=== PATIENT | female | born 1930 | race Caucasian/White ===

== ENCOUNTER 2016-09-05 10:46 | Observation (INO) | payer MEDICARE, BC ==
[~2016-09-05] VITALS: Ht 157.5 cm; Wt 55.4 kg
[~2016-09-05 10:46] MED LIST: AMOXICILLIN 50500 MG PO; AVAPRO TAB150 MG/TAB PO; B-121000 MCG PO; CALCIUM 600MG+D1 TAB PO; COMPAZINE 110 MG/TAB PO; CORDARONE200 MG/TAB PO; DIGOXIN PO; DIOVAN160 MG PO; FISH OIL500 MG PO; KLOR-CON M2020 MEQ PO; LIPITOR 80MG80 MG PO; LORTAB 5/500 501 TAB PO; METAMUCIL3.4 GM/DOS PO; NORCO 325 MG-51 TAB PO; OMNICEF 300MG300 MG PO; OSCAL 500 TAB500 MG PO; PRILOSEC 20MG20 MG PO; PROLIA60 MG/ML SC; SYNTHROID0.075 MG/T PO; ULTRAM 50MG TAB50 MG PO; VITAMIN D1000 IU PO; ZANTAC 150150 MG; ZEBETA 5MG5 MG PO; ZOFRAN 4MG T4 MG/TAB PO
[2016-09-05] MEDS ORDERED: TYLENOL W/COD1 UDTAB PO (14:08)
[2016-09-05 16:07] LABS: BASO # 0.1 (0.0-0.2); BASO % 0.5 % (0.0-2.0); EOS # 0.1 (0.0-0.7); EOS % 0.6 % (0-4.0); GRAN # 7.5 (1.4-6.5); GRAN % 76.9 % (42.2-75.2); HEMATOCRIT 37.1 % (37.0-47.0); HEMOGLOBIN 12.1 g/dl (12.5-16.0); LYMPH # 1.3 (1.2-3.4); LYMPH % 13.3 % (20.0-51.0); MEAN CELL VOLUME 95 fl (80.0-100.0); MEAN CORPUSCULAR HEMOGLOBIN 31 pg (27.0-31.0); MEAN CORPUSCULAR HGB CONC 33 g/dl (33.0-37.0); MEAN PLATELET VOLUME 12.2 fl (7.4-10.4); MONO # 0.8 (0.1-0.6); PLATELET COUNT 166 K/mm3 (130-400); RED BLOOD COUNT 3.91 M/mm3 (4.10-5.30); REDCELL DISTRIBUTION WIDTH-CV 15.5 % (11.5-14.5); WHITE BLOOD COUNT 9.8 K/mm3 (4.8-10.8)
[2016-09-05 16:16] LABS: ADJUSTED CALCIUM 9.5 mg/dL (8.4-10.2); ALBUMIN 4.5 gm/dL (3.5-5.0); BILIRUBIN,TOTAL 0.5 mg/dL (0.0-1.0); CALCIUM 9.9 mg/dL (8.4-10.2); CREATININE, serum 1.19 mg/dL (0.52-1.25); TOTAL PROTEIN 7.3 gm/dL (6.4-8.2)
[2016-09-05 16:58] VITALS: BP 195/79; PULSE 67; TEMP 98
[2016-09-05 17:03] VITALS: BP 195/79; PULSE 68; TEMP 98
[2016-09-05] MEDS ORDERED: REQUIP0.25 MG PO (17:55)
[2016-09-05] MEDS ORDERED: PACERONE100 MG PO (17:56)
[2016-09-05 19:10] VITALS: BP 205/86; PULSE 77; TEMP 98.3
[2016-09-05 22:49] VITALS: BP 167/63
[2016-09-05 23:29] VITALS: BP 176/55; PULSE 62; TEMP 98
[2016-09-06 06:47] VITALS: BP 124/61; PULSE 61; TEMP 98.7
[2016-09-06 07:59] VITALS: BP 144/68; PULSE 61; TEMP 98.2
[2016-09-06 11:44] VITALS: BP 133/61; PULSE 120
[2016-09-06 13:17] VITALS: BP 133/61; PULSE 120; TEMP 98.2
== END 2016-09-06 14:45 ==
LOC: COL.ER 10:46 → MEDICAL 16:01
PROVIDERS: Emergency Medicine
DX: S43.004A Unspecified dislocation of right shoulder joint, initial encounter (principal); S50.311A Abrasion of right elbow, initial encounter; W07.XXXA Fall from chair, initial encounter; R27.0 Ataxia, unspecified; Z91.81 History of falling; Y93.89 Activity, other specified; Y92.22 Religious institution as the place of occurrence of the external cause; M85.80 Other specified disorders of bone density and structure, unspecified site; G20 Parkinson's disease; I48.0 Paroxysmal atrial fibrillation; I10 Essential (primary) hypertension; Z95.0 Presence of cardiac pacemaker; R41.0 Disorientation, unspecified; R45.1 Restlessness and agitation
CPT/HCPCS: G0378; J2765; J3010; J7030